=== PATIENT | male | born 1995 | race Caucasian/White ===

== ENCOUNTER 2021-04-27 18:56 | Emergency (ER) | payer OTHER ==
[~2021-04-27] VITALS: Ht 177.8 cm; Wt 81.7 kg
== END 2021-04-27 21:50 | disposition home or self-care (01) ==
LOC: ER 18:56
DX: J06.9 Acute upper respiratory infection, unspecified (principal); F17.200 Nicotine dependence, unspecified, uncomplicated
CPT/HCPCS: 99284